=== PATIENT | male | born 1980 | race Caucasian/White ===

== ENCOUNTER → 2017-09-25 | Outpatient (CLI) | payer OTHER ==
--- NOTE | 2017-09-26 09:10 | CPEEG ---
[f rep st] ELECTROENCEPHALOGRAM ELECTROENCEPHALOGRAM. DATE OF STUDY: 09/25/2017 DATE OF INTERPRETATION: 09/25/2017. INTERPRETATION: Normal EEG during wakefulness and sleep. There were no potentially epileptogenic ab normalities present during recording. REPORT: This EEG contains 10 Hz alpha activity to the posterior head regions. There was no abnormal activation at rest, during photic stimulation or hyperventilation. The patient became drowsy and fe ll asleep during the study. There was no abnormal activation during drowsiness, sleep, or during radha es of arousal. /[id number]/MODL
== END ==
LOC: FCPNEURO 09:41
PROVIDERS: ATTEND Psychiatry & Neurology Neurology
DX: R29.818 Other symptoms and signs involving the nervous system (principal)

== ENCOUNTER → 2017-10-08 | Outpatient (CLI) | payer OTHER | LOC: FIMAGING 10:45 | PROVIDERS: ATTEND Psychiatry & Neurology Neurology | DX: R13.10 Dysphagia, unspecified (principal); R63.3 Feeding difficulties | CPT/HCPCS: 92611-GN ==